=== PATIENT | female | born 1995 | race Two or more races ===

== ENCOUNTER 2017-02-15 20:58 | Emergency (ER) | payer OTHER ==
[~2017-02-15] VITALS: Ht 165.1 cm; Wt 72.6 kg
== END 2017-02-15 23:26 | disposition home or self-care (01) ==
LOC: CED 20:58 → CFTX 20:58
DX: H00.011 Hordeolum externum right upper eyelid (principal); Z91.013 Allergy to seafood
CPT/HCPCS: 99283